=== PATIENT | female | born 1935 | race African-American/Black ===

== ENCOUNTER 2022-03-26 09:47 | Inpatient (IN) | payer SELFPAY ==
[~2022-03-26] VITALS: Ht 162.6 cm; Wt 84.8 kg
[2022-03-26 10:44] LABS: BASOPHILS % 0.2 % (0.0-2.0); HEMATOCRIT. 49.2 % (36.0-48.0); LYMPHOCYTES % 12.1 % (20.0-50.0); MEAN CORPUSCULAR HEMOGLOBIN 29.4 pg (28.0-32.0); MEAN CORPUSCULAR VOLUME 90.6 fL (81.0-99.0); MEAN PLATELET VOLUME 7.9 fl (7.4-10.4); MONOCYTES % 2.2 % (2.0-8.0); NEUTROPHILS % 85.5 % (40.0-76.0); PLATELET 176 x1000/uL (130-400); RED BLOOD CELL COUNT 5.43 mill/uL (4.2-5.4); RED CELL DISTRIBUTION WIDTH 14.8 % (11.6-14.6)
[2022-03-26 10:52] LABS: CHLORIDE 103 mEq/L (98-107)
[2022-03-26 11:02] LABS: CREATINE KINASE 52 IU/L (26-192); ETHANOL BLOOD < 10 mg/dL
[2022-03-26 12:06] LABS: CLARITY URINE CLEAR (CLEAR); COLOR URINE YELLOW (YELLOW); KETONES URINE 3+ (NEGATIVE); LEUKOCYTE ESTERASE URINE NEGATIVE (NEGATIVE); NITRITE URINE NEGATIVE (NEGATIVE); OCCULT BLOOD URINE 1+ (NEGATIVE); PROTEIN URINE 2+ (NEGATIVE); SPECIFIC GRAVITY URINE 1.022 (1.005-1.030)
[2022-03-26] MEDS ORDERED: GUAIFENESIN 200MG/10ML SUGAR FREE UDC PO PRN (17:15)
[2022-03-26] MEDS ORDERED: ONDANSETRON HCL 4MG/2ML INJ IV PRN (17:15)
[2022-03-26] MEDS ORDERED: ACETAMINOPHEN 650MG SUPP PR PRN (17:15)
[2022-03-26] MEDS ORDERED: CLONIDINE 0.1MG TABLET PO PRN (17:15)
[2022-03-26] MEDS ORDERED: HYDRALAZINE 20MG/ML VIAL IV PRN ×2 (17:15→18:00)
[2022-03-26] MEDS ORDERED: DEXTROSE 50% WATER 50ML SYRINGE IV PRN (17:15)
[2022-03-26] MEDS ORDERED: IPRATROPIUM/ALBUTEROL 0.5-3(2.5)MG/3ML NEB HHN PRN (17:15)
[2022-03-26] MEDS ORDERED: OLANZAPINE 10 MG/VIAL IM PRN (17:30)
[2022-03-26] MEDS: DEXT 5%/0.9% NACL 1,000 ML IV SCH (18:00)
[2022-03-26] MEDS: ENOXAPARIN 30MG/0.3ML SYR SUBCUT SCH (18:00)
[2022-03-26 20:00] VITALS: BP 159/77
[2022-03-26] MEDS: BLOOD SUGAR DIAGNOSTIC STRIP TEST SCH (21:00)
[2022-03-26] MEDS: INSULIN LISPRO 100 UNITS/ML SUBCUT SCH (21:00)
[2022-03-26 23:21] VITALS: BP 159/71
[2022-03-27] MEDS: BLOOD SUGAR DIAGNOSTIC STRIP TEST SCH ×4 (06:32→21:43)
[2022-03-27] MEDS: INSULIN LISPRO 100 UNITS/ML SUBCUT SCH ×4 (06:32→21:49)
[2022-03-27 08:00] VITALS: BP 184/89
[2022-03-27] MEDS: DEXT 5%/0.9% NACL 1,000 ML IV SCH (08:08)
[2022-03-27 08:31] LABS: BASOPHILS % 0.5 % (0.0-2.0); EOSINOPHILS % 0.1 % (0.0-5.0); HEMATOCRIT. 47.8 % (36.0-48.0); HEMOGLOBIN. 16.3 g/dL (12.0-16.0); LYMPHOCYTES % 21.7 % (20.0-50.0); MEAN CORPUSCULAR HEMOGLOBIN 30.4 pg (28.0-32.0); MEAN CORPUSCULAR VOLUME 89.1 fL (81.0-99.0); MEAN PLATELET VOLUME 8.3 fl (7.4-10.4); MONOCYTES % 7.5 % (2.0-8.0); NEUTROPHILS % 70.2 % (40.0-76.0); PLATELET 174 x1000/uL (130-400); RED BLOOD CELL COUNT 5.37 mill/uL (4.2-5.4); RED CELL DISTRIBUTION WIDTH 14.8 % (11.6-14.6)
[2022-03-27 09:18] LABS: CHLORIDE 103 mEq/L (98-107)
[2022-03-27] MEDS ORDERED: LORAZEPAM 2MG/ML CPJ IV PRN (10:15)
[2022-03-27 12:00] VITALS: BP 173/84
[2022-03-27] MEDS ORDERED: HYDRALAZINE 10 MG in SODIUM CHLORIDE 0.9% 49.5 ML IV PRN (13:30)
[2022-03-27] MEDS: AMLODIPINE 10MG TABLET PO SCH (14:32)
[2022-03-27 16:02] VITALS: BP 187/87
[2022-03-27] MEDS: ENOXAPARIN 30MG/0.3ML SYR SUBCUT SCH (17:41)
[2022-03-27 20:00] VITALS: BP 158/72
[2022-03-27] MEDS: HYDRALAZINE HCL 50MG TABLET PO SCH (21:43)
[2022-03-27] MEDS ORDERED: KEPP500 PO (22:37)
[2022-03-28] VITALS: BP 156/67
[2022-03-28] MEDS ORDERED: LABETALOL 5MG/ML SYR 20 MG/4 ML SYRINGE IV ONE
[2022-03-28] MEDS: LEVETIRACETAM 500MG PREMIX 100 ML IV SCH ×2 (01:15→11:38)
[2022-03-28 04:00] VITALS: BP 146/71
[2022-03-28] MEDS: BLOOD SUGAR DIAGNOSTIC STRIP TEST SCH ×4 (06:55→21:00)
[2022-03-28 08:00] VITALS: BP 150/75
[2022-03-28] MEDS: HYDRALAZINE HCL 50MG TABLET PO SCH ×2 (08:56→22:22)
[2022-03-28] MEDS: AMLODIPINE 10MG TABLET PO SCH (08:56)
[2022-03-28] MEDS: INSULIN LISPRO 100 UNITS/ML SUBCUT SCH ×4 (08:57→22:23)
[2022-03-28 12:00] VITALS: BP 149/55
[2022-03-28 15:58] VITALS: BP 151/68
[2022-03-28] MEDS: ENOXAPARIN 30MG/0.3ML SYR SUBCUT SCH (17:51)
[2022-03-28] MEDS: ACETAMINOPHEN 325MG TABLET PO PRN (17:52)
[2022-03-28 20:00] VITALS: BP 134/52
[2022-03-28] MEDS: LEVETIRACETAM 500MG TABLET PO SCH (22:22)
[2022-03-28] MEDS: INSULIN GLARGINE 100 UNITS/ML SUBCUT SCH (22:24)
[2022-03-29] VITALS: BP 130/47
[2022-03-29 04:00] VITALS: BP 115/63
[2022-03-29] MEDS: BLOOD SUGAR DIAGNOSTIC STRIP TEST SCH ×4 (05:38→21:00)
[2022-03-29] MEDS: INSULIN LISPRO 100 UNITS/ML SUBCUT SCH ×4 (05:49→22:16)
[2022-03-29 08:00] VITALS: BP 124/60
[2022-03-29] MEDS: HYDRALAZINE HCL 50MG TABLET PO SCH ×2 (08:27→22:11)
[2022-03-29] MEDS: LEVETIRACETAM 500MG TABLET PO SCH ×2 (08:27→22:11)
[2022-03-29] MEDS: AMLODIPINE 10MG TABLET PO SCH (08:27)
[2022-03-29] MEDS: INSULIN GLARGINE 100 UNITS/ML SUBCUT SCH ×2 (09:28→22:16)
[2022-03-29 12:00] VITALS: BP 133/53
[2022-03-29 15:37] VITALS: BP 140/52
[2022-03-29] MEDS: ENOXAPARIN 30MG/0.3ML SYR SUBCUT SCH (17:24)
[2022-03-29 20:00] VITALS: BP 144/54
[2022-03-30] VITALS: BP 143/58
[2022-03-30 04:00] VITALS: BP 142/59
[2022-03-30] MEDS: BLOOD SUGAR DIAGNOSTIC STRIP TEST SCH ×4 (05:51→20:49)
[2022-03-30] MEDS: INSULIN LISPRO 100 UNITS/ML SUBCUT SCH ×4 (05:52→20:50)
[2022-03-30 06:02] LABS: BASOPHILS % 0.5 % (0.0-2.0); EOSINOPHILS % 0.6 % (0.0-5.0); HEMATOCRIT. 45.1 % (36.0-48.0); HEMOGLOBIN. 15.3 g/dL (12.0-16.0); LYMPHOCYTES % 21.5 % (20.0-50.0); MEAN CORPUSCULAR HEMOGLOBIN 30.4 pg (28.0-32.0); MEAN CORPUSCULAR VOLUME 89.4 fL (81.0-99.0); MONOCYTES % 12.8 % (2.0-8.0); NEUTROPHILS % 64.6 % (40.0-76.0); PLATELET 181 x1000/uL (130-400); RED BLOOD CELL COUNT 5.05 mill/uL (4.2-5.4); RED CELL DISTRIBUTION WIDTH 14.9 % (11.6-14.6)
[2022-03-30 06:42] LABS: CHLORIDE 107 mEq/L (98-107)
[2022-03-30 08:00] VITALS: BP 133/55
[2022-03-30] MEDS: METFORMIN HCL 500MG TABLET PO SCH (08:50)
[2022-03-30] MEDS: HYDRALAZINE HCL 50MG TABLET PO SCH ×2 (08:50→20:48)
[2022-03-30] MEDS: AMLODIPINE 10MG TABLET PO SCH (08:50)
[2022-03-30] MEDS: LEVETIRACETAM 500MG TABLET PO SCH ×2 (08:50→20:49)
[2022-03-30] MEDS: INSULIN GLARGINE 100 UNITS/ML SUBCUT SCH ×2 (09:04→21:38)
[2022-03-30 12:00] VITALS: BP 143/55
[2022-03-30 16:00] VITALS: BP 137/59
[2022-03-30] MEDS ORDERED: POTASSIUM CHLORIDE 20MEQ TABLET SR PO NR (16:15)
[2022-03-30] MEDS: ENOXAPARIN 30MG/0.3ML SYR SUBCUT SCH (17:11)
[2022-03-30 20:00] VITALS: BP 151/66
[2022-03-31] VITALS: BP 141/56
[2022-03-31 04:00] VITALS: BP 138/63
[2022-03-31] MEDS: BLOOD SUGAR DIAGNOSTIC STRIP TEST SCH ×4 (05:48→20:18)
[2022-03-31] MEDS: INSULIN LISPRO 100 UNITS/ML SUBCUT SCH ×4 (05:48→20:25)
[2022-03-31 08:00] VITALS: BP 125/52
[2022-03-31] MEDS: LEVETIRACETAM 500MG TABLET PO SCH ×2 (08:06→20:23)
[2022-03-31] MEDS: METFORMIN HCL 500MG TABLET PO SCH (08:06)
[2022-03-31] MEDS: HYDRALAZINE HCL 50MG TABLET PO SCH ×2 (08:07→20:24)
[2022-03-31] MEDS: AMLODIPINE 10MG TABLET PO SCH (08:07)
[2022-03-31] MEDS: ACETAMINOPHEN 325MG TABLET PO PRN (09:53)
[2022-03-31] MEDS: INSULIN GLARGINE 100 UNITS/ML SUBCUT SCH ×2 (10:17→20:26)
[2022-03-31 12:00] VITALS: BP 139/53
[2022-03-31 16:00] VITALS: BP 135/48
[2022-03-31] MEDS: ENOXAPARIN 30MG/0.3ML SYR SUBCUT SCH (17:41)
[2022-03-31 20:00] VITALS: BP 152/66
[2022-04-01] VITALS: BP 146/59
[2022-04-01 04:00] VITALS: BP 146/79
[2022-04-01] MEDS: BLOOD SUGAR DIAGNOSTIC STRIP TEST SCH ×4 (05:03→21:38)
[2022-04-01] MEDS: INSULIN LISPRO 100 UNITS/ML SUBCUT SCH ×4 (05:29→21:41)
[2022-04-01 08:00] VITALS: BP 168/68
[2022-04-01] MEDS: METFORMIN HCL 500MG TABLET PO SCH (08:58)
[2022-04-01] MEDS: AMLODIPINE 10MG TABLET PO SCH (08:58)
[2022-04-01] MEDS: LEVETIRACETAM 500MG TABLET PO SCH ×2 (08:59→21:37)
[2022-04-01] MEDS: HYDRALAZINE HCL 50MG TABLET PO SCH ×2 (08:59→21:00)
[2022-04-01] MEDS: INSULIN GLARGINE 100 UNITS/ML SUBCUT SCH ×2 (09:04→21:40)
[2022-04-01 12:00] VITALS: BP 147/65
[2022-04-01 16:00] VITALS: BP 120/53
[2022-04-01] MEDS: ENOXAPARIN 30MG/0.3ML SYR SUBCUT SCH (17:50)
[2022-04-01 22:12] VITALS: BP 90/63
[2022-04-02 02:19] VITALS: BP 154/54
[2022-04-02] MEDS: BLOOD SUGAR DIAGNOSTIC STRIP TEST SCH ×4 (06:35→21:48)
[2022-04-02] MEDS: INSULIN LISPRO 100 UNITS/ML SUBCUT SCH ×4 (06:52→21:47)
[2022-04-02 08:00] VITALS: BP 154/76
[2022-04-02] MEDS: LEVETIRACETAM 500MG TABLET PO SCH ×2 (09:38→21:31)
[2022-04-02] MEDS: METFORMIN HCL 500MG TABLET PO SCH (09:38)
[2022-04-02] MEDS: HYDRALAZINE HCL 50MG TABLET PO SCH ×2 (09:40→21:34)
[2022-04-02] MEDS: AMLODIPINE 10MG TABLET PO SCH (09:41)
[2022-04-02] MEDS: INSULIN GLARGINE 100 UNITS/ML SUBCUT SCH ×2 (09:51→21:39)
[2022-04-02 12:00] VITALS: BP 151/68
[2022-04-02 16:00] VITALS: BP 142/61
[2022-04-02] MEDS: ENOXAPARIN 30MG/0.3ML SYR SUBCUT SCH (18:23)
[2022-04-03] VITALS: BP 162/61
[2022-04-03 04:00] VITALS: BP 136/59
[2022-04-03] MEDS: INSULIN LISPRO 100 UNITS/ML SUBCUT SCH ×4 (07:50→20:34)
[2022-04-03 08:00] VITALS: BP 150/57
[2022-04-03] MEDS: BLOOD SUGAR DIAGNOSTIC STRIP TEST SCH ×4 (08:13→20:26)
[2022-04-03] MEDS: HYDRALAZINE HCL 50MG TABLET PO SCH ×2 (09:33→20:04)
[2022-04-03] MEDS: METFORMIN HCL 500MG TABLET PO SCH (09:33)
[2022-04-03] MEDS: ACETAMINOPHEN 325MG TABLET PO PRN (09:33)
[2022-04-03] MEDS: LEVETIRACETAM 500MG TABLET PO SCH ×2 (09:34→20:03)
[2022-04-03] MEDS: AMLODIPINE 10MG TABLET PO SCH (09:34)
[2022-04-03] MEDS: INSULIN GLARGINE 100 UNITS/ML SUBCUT SCH ×2 (10:00→21:45)
[2022-04-03 12:00] VITALS: BP 135/79
[2022-04-03 16:00] VITALS: BP 125/49
[2022-04-03] MEDS: ENOXAPARIN 30MG/0.3ML SYR SUBCUT SCH (17:56)
[2022-04-03 20:00] VITALS: BP 136/57
[2022-04-04] VITALS: BP 135/55
[2022-04-04] MEDS: DOCUSATE SODIUM 100MG CAPSULE PO PRN ×2 (03:40→18:01)
[2022-04-04 04:00] VITALS: BP 133/60
[2022-04-04] MEDS: BLOOD SUGAR DIAGNOSTIC STRIP TEST SCH ×4 (06:07→21:14)
[2022-04-04] MEDS: INSULIN LISPRO 100 UNITS/ML SUBCUT SCH ×4 (07:50→21:30)
[2022-04-04 08:00] VITALS: BP 132/53
[2022-04-04] MEDS: LEVETIRACETAM 500MG TABLET PO SCH ×2 (08:39→20:06)
[2022-04-04] MEDS: METFORMIN HCL 500MG TABLET PO SCH (08:40)
[2022-04-04] MEDS: AMLODIPINE 10MG TABLET PO SCH (08:40)
[2022-04-04] MEDS: HYDRALAZINE HCL 50MG TABLET PO SCH ×2 (08:40→20:06)
[2022-04-04] MEDS: INSULIN GLARGINE 100 UNITS/ML SUBCUT SCH ×2 (10:00→21:25)
[2022-04-04 12:00] VITALS: BP 139/51
[2022-04-04 16:00] VITALS: BP 153/62
[2022-04-04] MEDS: ENOXAPARIN 30MG/0.3ML SYR SUBCUT SCH (18:01)
[2022-04-04 20:00] VITALS: BP 127/50
[2022-04-05] VITALS: BP 140/56
[2022-04-05] MEDS: ACETAMINOPHEN 325MG TABLET PO PRN ×3 (00:43→22:32)
[2022-04-05 04:00] VITALS: BP 138/60
[2022-04-05 07:14] LABS: HEMOGLOBIN 14.2 g/dL (12.0-16.0); MEAN CORPUSCULAR HEMOGLOBIN 30.2 pg (28.0-32.0); PLATELET 218 x1000/uL (130-400); RED BLOOD CELL COUNT 4.71 mill/uL (4.2-5.4)
[2022-04-05 07:56] LABS: CHLORIDE 106 mEq/L (98-107)
[2022-04-05 08:00] VITALS: BP 122/57
[2022-04-05] MEDS: AMLODIPINE 10MG TABLET PO SCH (10:43)
[2022-04-05] MEDS: DOCUSATE SODIUM 100MG CAPSULE PO PRN (10:43)
[2022-04-05] MEDS: HYDRALAZINE HCL 50MG TABLET PO SCH ×2 (10:44→20:56)
[2022-04-05] MEDS: METFORMIN HCL 500MG TABLET PO SCH (10:44)
[2022-04-05] MEDS: LEVETIRACETAM 500MG TABLET PO SCH ×2 (10:44→20:56)
[2022-04-05] MEDS: INSULIN GLARGINE 100 UNITS/ML SUBCUT SCH ×2 (10:53→21:07)
[2022-04-05 12:00] VITALS: BP 146/54
[2022-04-05] MEDS: BLOOD SUGAR DIAGNOSTIC STRIP TEST SCH ×3 (12:53→21:08)
[2022-04-05] MEDS: INSULIN LISPRO 100 UNITS/ML SUBCUT SCH ×3 (14:38→21:00)
[2022-04-05 16:00] VITALS: BP 107/45
[2022-04-05] MEDS: ENOXAPARIN 30MG/0.3ML SYR SUBCUT SCH (17:04)
[2022-04-05 20:00] VITALS: BP 142/54
[2022-04-06] VITALS: BP 119/63
[2022-04-06 04:00] VITALS: BP 149/80
[2022-04-06] MEDS: BLOOD SUGAR DIAGNOSTIC STRIP TEST SCH ×4 (06:20→21:00)
[2022-04-06] MEDS: INSULIN LISPRO 100 UNITS/ML SUBCUT SCH ×4 (06:21→21:00)
[2022-04-06 08:00] VITALS: BP 133/60
[2022-04-06] MEDS: LEVETIRACETAM 500MG TABLET PO SCH ×2 (09:28→22:50)
[2022-04-06] MEDS: AMLODIPINE 10MG TABLET PO SCH (09:28)
[2022-04-06] MEDS: HYDRALAZINE HCL 50MG TABLET PO SCH ×2 (09:29→22:50)
[2022-04-06] MEDS: METFORMIN HCL 500MG TABLET PO SCH (09:29)
[2022-04-06] MEDS: INSULIN GLARGINE 100 UNITS/ML SUBCUT SCH ×2 (09:35→23:00)
[2022-04-06 12:00] VITALS: BP 137/60
[2022-04-06 16:00] VITALS: BP 138/55
[2022-04-06] MEDS: ENOXAPARIN 40MG/0.4ML SYR SUBCUT SCH (16:11)
[2022-04-06] MEDS: ACETAMINOPHEN 325MG TABLET PO PRN (17:07)
[2022-04-06 20:00] VITALS: BP 115/51
[2022-04-07] VITALS: BP 122/41
[2022-04-07 04:00] VITALS: BP 109/44
[2022-04-07] MEDS: INSULIN LISPRO 100 UNITS/ML SUBCUT SCH ×4 (07:50→21:00)
[2022-04-07 08:00] VITALS: BP 128/51
[2022-04-07] MEDS: BLOOD SUGAR DIAGNOSTIC STRIP TEST SCH ×4 (08:03→20:39)
[2022-04-07] MEDS: AMLODIPINE 10MG TABLET PO SCH (09:00)
[2022-04-07] MEDS: ENOXAPARIN 40MG/0.4ML SYR SUBCUT SCH (10:48)
[2022-04-07] MEDS: HYDRALAZINE HCL 50MG TABLET PO SCH ×2 (10:48→20:50)
[2022-04-07] MEDS: LEVETIRACETAM 500MG TABLET PO SCH ×2 (10:49→20:48)
[2022-04-07] MEDS: ACETAMINOPHEN 325MG TABLET PO PRN (10:49)
[2022-04-07] MEDS: METFORMIN HCL 500MG TABLET PO SCH (10:49)
[2022-04-07] MEDS: INSULIN GLARGINE 100 UNITS/ML SUBCUT SCH ×2 (10:56→21:00)
[2022-04-07 12:00] VITALS: BP 128/86
[2022-04-07 16:00] VITALS: BP 133/50
[2022-04-07 21:04] VITALS: BP 149/59
[2022-04-08 03:34] VITALS: BP 136/70
[2022-04-08] MEDS: BLOOD SUGAR DIAGNOSTIC STRIP TEST SCH ×4 (06:41→20:58)
[2022-04-08] MEDS: INSULIN LISPRO 100 UNITS/ML SUBCUT SCH ×4 (07:50→20:57)
[2022-04-08 08:00] VITALS: BP 129/59
[2022-04-08] MEDS: HYDRALAZINE HCL 50MG TABLET PO SCH ×2 (09:00→20:54)
[2022-04-08] MEDS: AMLODIPINE 10MG TABLET PO SCH (09:00)
[2022-04-08] MEDS: ENOXAPARIN 40MG/0.4ML SYR SUBCUT SCH (09:22)
[2022-04-08] MEDS: METFORMIN HCL 500MG TABLET PO SCH (09:22)
[2022-04-08] MEDS: LEVETIRACETAM 500MG TABLET PO SCH ×2 (09:22→20:54)
[2022-04-08] MEDS: INSULIN GLARGINE 100 UNITS/ML SUBCUT SCH ×2 (10:00→21:03)
[2022-04-08 12:00] VITALS: BP 118/52
[2022-04-08 20:00] VITALS: BP 131/72
[2022-04-09] VITALS: BP 133/53
[2022-04-09 04:00] VITALS: BP 130/64
[2022-04-09] MEDS: BLOOD SUGAR DIAGNOSTIC STRIP TEST SCH ×2 (06:29→12:42)
[2022-04-09] MEDS: INSULIN LISPRO 100 UNITS/ML SUBCUT SCH ×2 (07:50→14:51)
[2022-04-09 08:00] VITALS: BP 156/64
[2022-04-09] MEDS: HYDRALAZINE HCL 50MG TABLET PO SCH (08:38)
[2022-04-09] MEDS: ENOXAPARIN 40MG/0.4ML SYR SUBCUT SCH (08:38)
[2022-04-09] MEDS: LEVETIRACETAM 500MG TABLET PO SCH (08:38)
[2022-04-09] MEDS: AMLODIPINE 10MG TABLET PO SCH (08:38)
[2022-04-09] MEDS: METFORMIN HCL 500MG TABLET PO SCH (08:38)
[2022-04-09] MEDS: INSULIN GLARGINE 100 UNITS/ML SUBCUT SCH (10:00)
[2022-04-09 12:00] VITALS: BP 152/60
[2022-04-09 12:55] VITALS: BP 156/68
[2022-04-09 16:00] VITALS: BP 126/54
== END 2022-04-09 17:10 | disposition home or self-care (01) | DRG 52 ==
LOC: EDBD 10:16 → ER 10:16 → ENRESERV 15:26 → 6EST 18:20 → 8WST 03-27 23:30 → 6EST 04-01 12:23
PROVIDERS: ADMIT Internal Medicine; ATTEND Internal Medicine
DX: G93.41 Metabolic encephalopathy (principal); F03.90 Unspecified dementia, unspecified severity, without behavioral disturbance, psychotic disturbance, mood disturbance, and anxiety; E11.65 Type 2 diabetes mellitus with hyperglycemia; I10 Essential (primary) hypertension; E66.9 Obesity, unspecified; Z79.899 Other long term (current) drug therapy; Z68.32 Body mass index [BMI] 32.0-32.9, adult; Z78.1 Physical restraint status
CPT/HCPCS: 36415; 71045; 80048; 80053; 80320; 81003; 82140; 82550; 82962; 83036; 83605; 83880; 84443; 84484; 85025; 85027; 93005; 97116; 97162; 97166; 99285; J0360; J1650; J1815; J1953; J3490; J7042; G0480

== ENCOUNTER 2022-06-07 09:24 | Inpatient (IN) | payer OTHER ==
[~2022-06-07] VITALS: Ht 167.6 cm; Wt 83.2 kg
[~2022-06-07 09:24] MED LIST: KEPP500 PO
[2022-06-07] MEDS ORDERED: LEVETIRACETAM 500MG PREMIX 100 ML IV ONE (09:45)
[2022-06-07] MEDS ORDERED: OLANZAPINE 10 MG/VIAL IM ONE (10:15)
[2022-06-07 10:40] LABS: BASOPHILS % 0.6 % (0.0-2.0); HEMATOCRIT. 48.8 % (36.0-48.0); HEMOGLOBIN. 16.5 g/dL (12.0-16.0); LYMPHOCYTES % 8.6 % (20.0-50.0); MEAN CORPUSCULAR VOLUME 88.4 fL (81.0-99.0); MEAN PLATELET VOLUME 8.8 fl (7.4-10.4); MONOCYTES % 2.5 % (2.0-8.0); NEUTROPHILS % 88.3 % (40.0-76.0); PLATELET 168 x1000/uL (130-400); RED BLOOD CELL COUNT 5.51 mill/uL (4.2-5.4); RED CELL DISTRIBUTION WIDTH 14.7 % (11.6-14.6)
[2022-06-07 10:49] LABS: CHLORIDE 105 mEq/L (98-107)
[2022-06-07 10:55] LABS: ETHANOL BLOOD < 10 mg/dL
[2022-06-07 13:25] LABS: CLARITY URINE CLEAR (CLEAR); COLOR URINE YELLOW (YELLOW); KETONES URINE 1+ (NEGATIVE); LEUKOCYTE ESTERASE URINE NEGATIVE (NEGATIVE); NITRITE URINE NEGATIVE (NEGATIVE); OCCULT BLOOD URINE 1+ (NEGATIVE); PH URINE 5.5 (4.5-8.0); PROTEIN URINE 2+ (NEGATIVE); SPECIFIC GRAVITY URINE 1.018 (1.005-1.030); UROBILINOGEN URINE 0.2 E.U./dL (0.2-1.0)
[2022-06-07 13:46] LABS: *AMPHETAMINES SCREEN URINE NEGATIVE (NEGATIVE); *BARBITURATES SCREEN URINE NEGATIVE (NEGATIVE); *BENZODIAZEPINES SCREEN URINE NEGATIVE (NEGATIVE); *COCAINE SCREEN URINE NEGATIVE (NEGATIVE); CANNABINOID URINE SCREEN NEGATIVE (NEGATIVE); METHADONE URINE SCREEN NEGATIVE (NEGATIVE); OPIATES URINE SCREEN NEGATIVE (NEGATIVE); PHENCYCLIDINE URINE SCREEN NEGATIVE (NEGATIVE)
[2022-06-07] MEDS ORDERED: ACETAMINOPHEN 325MG TABLET PO PRN (15:00)
[2022-06-07] MEDS ORDERED: ONDANSETRON HCL 4MG/2ML INJ IV PRN (15:00)
[2022-06-07] MEDS ORDERED: DEXTROSE 50% WATER 50ML SYRINGE IV PRN (15:00)
[2022-06-07 15:13] VITALS: BP 161/69
[2022-06-07] MEDS: AMLODIPINE 10MG TABLET PO SCH ×2 (15:15→16:29)
[2022-06-07] MEDS: RISPERIDONE 0.5MG TABLET PO SCH ×2 (15:15→16:29)
[2022-06-07] MEDS ORDERED: CEFTRIAXONE 1 G PREMIX 50 ML IV SCH (15:15)
[2022-06-07 15:34] VITALS: BP 161/69
[2022-06-07] MEDS: BLOOD SUGAR DIAGNOSTIC STRIP TEST SCH ×2 (16:29→20:24)
[2022-06-07] MEDS: CEFTRIAXONE 1,000 MG in DEXTROSE 5% WATER 50 ML IV SCH (16:29)
[2022-06-07] MEDS ORDERED: HALOPERIDOL LACTATE 5MG/ML VIAL IM PRN (17:00)
[2022-06-07] MEDS: INSULIN LISPRO 100 UNITS/ML SUBCUT SCH ×2 (17:29→20:24)
[2022-06-07 20:00] VITALS: BP 148/66
[2022-06-07] MEDS ORDERED: LEVETIRACETAM 500MG TABLET PO SCH (21:00)
[2022-06-07] MEDS ORDERED: LEVETIRACETAM 500MG PREMIX 100 ML IV SCH (21:00)
[2022-06-08 04:00] VITALS: BP 160/81
[2022-06-08] MEDS: BLOOD SUGAR DIAGNOSTIC STRIP TEST SCH ×3 (06:26→17:01)
[2022-06-08] MEDS: INSULIN LISPRO 100 UNITS/ML SUBCUT SCH ×3 (07:40→17:08)
[2022-06-08 08:00] VITALS: BP 131/58
[2022-06-08] MEDS ORDERED: LEVETIRACETAM 500MG TABLET PO SCH (09:00)
[2022-06-08] MEDS: RISPERIDONE 0.5MG TABLET PO SCH (09:10)
[2022-06-08] MEDS: AMLODIPINE 10MG TABLET PO SCH (09:11)
[2022-06-08 12:00] VITALS: BP 135/51
[2022-06-08] MEDS: CEFTRIAXONE 1,000 MG in DEXTROSE 5% WATER 50 ML IV SCH (13:41)
[2022-06-08 15:22] VITALS: BP 135/51
[2022-06-08 16:00] VITALS: BP 124/57
== END 2022-06-08 19:50 | disposition home or self-care (01) | DRG 53 ==
LOC: ER 09:24 → 8WST 12:45 → EDBEDREQ 12:48 → ENRESERV 13:35
PROVIDERS: ADMIT Family Medicine Adult Medicine; ATTEND Family Medicine Adult Medicine
DX: G40.409 Other generalized epilepsy and epileptic syndromes, not intractable, without status epilepticus (principal); J96.00 Acute respiratory failure, unspecified whether with hypoxia or hypercapnia; J18.9 Pneumonia, unspecified organism; F03.90 Unspecified dementia, unspecified severity, without behavioral disturbance, psychotic disturbance, mood disturbance, and anxiety; E11.65 Type 2 diabetes mellitus with hyperglycemia; E66.9 Obesity, unspecified; Z79.899 Other long term (current) drug therapy; Z68.29 Body mass index [BMI] 29.0-29.9, adult
CPT/HCPCS: 36415; 71045; 80053; 80305; 80320; 81003; 82962; 85025; 99285; C1893; J0696; J1815; J1953; J3490; J7060; G0480